=== PATIENT | female | born 1995 | race Caucasian/White ===

== ENCOUNTER 2018-10-02 19:14 | Emergency (ER) | payer BC ==
[2018-10-02 19:40] VITALS: BP 129/81; PULSE 103; TEMP 98.4; BMI 21.2
--- NOTE | 2018-10-02 19:43 | PDOC ---
Rapid Medical Evaluation Chief Complaint: Chest Pain Time Seen by Provider: 10/02/18 19:36 Medical Evaluation: 10/02/18 19:38 I have performed a brief in-person evaluation of this patient. The patient presents with a chief complaint of: Sent from for eval of CP / ro [place]. Chest pain all day, with upper left back pain. States stretched this am and may have hurt self. Denies fevers/ cough/ SOB. No0 cardiac hx . + Anxiety and thinks CP related but uncertain to back pain. Pertinent physical exam findings: pale, non toxic. Lungs CTA. I have ordered the following: eKG, ua/ ucg The patient will proceed to the ED for further evaluation. 10/02/18 19:40 Discharge Disposition - Diagnosis Chest pain - Referrals - Patient Instructions - Post Discharge Activity
--- NOTE | 2018-10-02 21:28 | PDOC ---
History of Present Illness - General Chief Complaint: Chest Pain Stated Complaint: SENT BY URGENT CARE/MD Time Seen by Provider: 10/02/18 19:36 History Source: Patient Exam Limitations: No Limitations - History of Present Illness Initial Comments: 10/02/18 21:52 Patient is a 23F with history of anxiety and depression, family history notable for blood clots in mother and grandmother, here today with chest pain that radiates to her back. Patient states that she was feeling short of breath and anxious today, typical of her normal issues with anxiety, but then became more worried when the pain developed. Denies fevers, chills, nausea, vomiting. LMP 22 days ago. Denies cough. Patient states that she does not have any pain right now. Stopped OCPs 3 days ago. Denies leg swelling, recent travel and immobilization. Past History - Past Medical History Allergies/Adverse Reactions: Allergies Allergy/AdvReac Type Severity Reaction Status Date / Time No Known Allergies Allergy Verified 10/02/18 20:45 COPD: No CHF: No - Suicide/Smoking/Psychosocial Hx Smoking History: Unknown if ever smoked Have you smoked in the past 12 months: No Information on smoking cessation initiated: No Hx Alcohol Use: No Drug/Substance Use Hx: No Review of Systems - Review of Systems Able to Perform ROS?: Yes Comments:: 10/02/18 21:55 GENERAL/CONSTITUTIONAL: No fever or chills. No weakness. HEAD, EYES, EARS, NOSE AND THROAT: No change in vision. No ear pain or discharge. No sore throat. CARDIOVASCULAR: +chest pain +shortness of breath RESPIRATORY: No cough, wheezing, or hemoptysis. GASTROINTESTINAL: No nausea, vomiting, diarrhea or constipation. GENITOURINARY: No dysuria, frequency, or change in urination. MUSCULOSKELETAL: No joint or muscle swelling or pain. No neck or back pain. SKIN: No rash NEUROLOGIC: No headache, vertigo, loss of consciousness, or change in strength/ sensation. ENDOCRINE: No increased thirst. No abnormal weight change HEMATOLOGIC/LYMPHATIC: No anemia, easy bleeding, or history of blood clots. ALLERGIC/IMMUNOLOGIC: No hives or skin allergy. *Physical Exam - Vital Signs Last Vital Signs Temp Pulse Resp BP Pulse Ox 98.4 F 103 H 16 129/81 100 10/02/18 19:37 10/02/18 19:37 10/02/18 19:37 10/02/18 19:37 10/02/18 19:37 - Physical Exam Comments: 10/02/18 21:55 GENERAL: Awake, alert, and fully oriented, in no acute distress HEAD: No signs of trauma, normocephalic, atraumatic EYES: PERRLA, EOMI, sclera anicteric, conjunctiva clear ENT: Auricles normal inspection, hearing grossly normal, nares patent, oropharynx clear without exudates. Moist mucosa NECK: Normal ROM, supple, no lymphadenopathy, JVD, or masses LUNGS: No distress, speaks full sentences, clear to auscultation bilaterally HEART: Regular rate and rhythm, normal S1 and S2, no murmurs, rubs or gallops, peripheral pulses normal and equal bilaterally. ABDOMEN: Soft, nontender, normoactive bowel sounds. No guarding, no rebound. No masses EXTREMITIES: Normal inspection, Normal range of motion, no edema. No clubbing or cyanosis. NEUROLOGICAL: Cranial nerves II through XII grossly intact. Normal speech, normal gait, no focal sensorimotor deficits SKIN: Warm, Dry, normal turgor, no rashes or lesions noted. ED Treatment Course - LABORATORY CBC & Chemistry Diagram: 10/02/18 22:48 10/02/18 22:48 - RADIOLOGY Radiology Studies Ordered: Category Date Time Status CHEST PA & LAT [RAD] Stat Radiology 10/02/18 21:22 Ordered Medical Decision Making - Medical Decision Making 10/02/18 21:57 Patient is 23F here today with chest pain and shortness of breath. DDx includes , but is not limited to: anxiety, pna, pe, acs is very low risk. Will do basic cardiac labs, d-dimer, ekg, cxr. Will re-evaluate and dispo. Currently not in pain. 10/02/18 23:27 EKG shows NSR with rate of 75. No st elevations/depressions. Rightward axis. RBBB pattern, normal intervals. T wave inversions in III and aVF. No prior available for comparison. D-dimer negative. CBC normal. CXR normal. Patient continues to be pain free. Pending trop. 10/03/18 00:53 Trop negative. CMP reassuring. CTA shows no pe/dissection. Does show likely inflammatory lung nodule. Patient given copy of report, told to follow up with cardiology and pcp. Given return precautions. *DC/Admit/Observation/Transfer Diagnosis at time of Disposition: Chest pain - Discharge Dispostion Disposition: HOME Condition at time of disposition: Good Decision to Admit order: No - Referrals Referrals: ON STAFF,NOT [Primary Care Provider] - - Patient Instructions Printed Discharge Instructions: DI for Chest Pain Additional Instructions: You were seen today in the ED for chest pain. No acute cause of your chest pain was found. Please follow up with the double end tenoner operator below regarding your EKG. Please follow up with your primary care doctor regarding the small nodule in your lung. Please return if you have any new, worsening or concerning symptoms, especially fevers, chills, nausea vomiting. - Post Discharge Activity
[2018-10-02 21:38] LABS: URINE APPEARANCE CLEAR; URINE BILIRUBIN NEGATIVE (NEGATIVE); URINE COLOR YELLOW; URINE GLUCOSE (UA) NEGATIVE (NEGATIVE); URINE KETONE NEGATIVE (NEGATIVE); URINE LEUK ESTERASE NEGATIVE (NEGATIVE); URINE NITRITE NEGATIVE (NEGATIVE); URINE PROTEIN NEGATIVE (NEGATIVE); URINE UROBILINOGEN 0.2 mg/dL (0.2-1.0)
[2018-10-02 22:57] LABS: BASO % 1.3 % (0-2.0); EOS % 2.4 % (0-4.5); HEMATOCRIT 38.2 % (32.4-45.2); HEMOGLOBIN 12.9 GM/dL (10.7-15.3); LYMPH % 41.9 % (8-40); MCH 31.3 pg (25.7-33.7); MCHC 33.9 g/dl (32.0-36.0); MEAN CELL VOLUME 92.6 fl (80-96); MEAN PLT VOLUME 9.3 fl (7.5-11.1); MONO % 6.7 % (3.8-10.2); NEUT % 47.7 % (42.8-82.8); PLATELET COUNT 301 K/MM3 (134-434); RBC 4.12 M/mm3 (3.60-5.2); RDW 13.2 % (11.6-15.6); WHITE BLOOD COUNT 6.6 K/mm3 (4.0-10.0)
[2018-10-02 23:11] LABS: INR 0.97 (0.83-1.09); PROTHROMBIN TIME (PATIENT) 11.5 SEC (9.7-13.0)
[2018-10-02 23:30] LABS: BILIRUBIN,TOTAL 0.4 mg/dL (0.2-1); BLOOD UREA NITROGEN 6.2 mg/dL (7-18); CALCIUM 9.5 mg/dL (8.5-10.1); CREATININE 0.6 mg/dL (0.55-1.3); MAGNESIUM 2.3 mg/dL (1.8-2.4); POTASSIUM 4.1 mmol/L (3.5-5.1); TOT PROT 7.3 g/dl (6.4-8.2)
--- NOTE | 2018-10-03 00:49 | PDOC ---
Documentation entered by Marjorie Riddle SCRIBE, acting as scribe for Alycia Hunt DO. Alycia Hunt DO: This documentation has been prepared by the Janessa griffin Brenda, SCRIBE, under my direction and personally reviewed by me in its entirety. I confirm that the documentation accurately reflects all work , treatment, procedures, and medical decision making performed by me. Attending Attestation - Resident Resident Name: Toby Shankar - ED Attending Attestation I have performed the following: I have examined & evaluated the patient, The case was reviewed & discussed with the resident, I agree w/resident's findings & plan, Exceptions are as noted - HPI HPI: 10/02/18 23:54 The patient is a 23 year old female, with a significant PMH of anxiety who presents to the emergency department sent from Urgent Care for evaluation of 1 day of chest pain to rule out MT and an elevated D-Dimer. As per patient, the chest pain is left sided and radiates to her back. The patient denies shortness of breath, headache and dizziness. Denies any GI symptoms. Denies any urinary symptoms. Allergies: NKA, NKDA. Family History: Blood clots - Mother and maternal grandmother PCP: Not on staff - Physicial Exam PE: 10/02/18 22:02 Agree with resident's exam. - Medical Decision Making 10/03/18 00:46 23-year-old female with intermittent central chest pressure now with radiation to the back Patient has family history of abnormal clotting with multiple DVTs in both her mother and grandmother EKG and arrival shows a sinus rhythm at 75 beats per minutes with U waves in lateral leads, there are T wave inversions and flattening in inferior leads as well D-dimer is within normal limits in light of family history, recent oral contraceptive use and tachycardia on arrival a CTA of the chest will be performed Troponin within normal limits Pending CTA results patient will be discharged home with outpatient cardiology follow-up
--- NOTE | 2018-10-03 13:33 | EKG ---
Test Reason : Blood Pressure : / mmHG Vent. Rate : 075 BPM Atrial Rate : 075 BPM P-R Int : 134 ms QRS Dur : 100 ms QT Int : 394 ms P-R-T Axes : 066 098 -16 degrees QTc Int : 439 ms NORMAL SINUS RHYTHM POSSIBLE LEFT ATRIAL ENLARGEMENT RIGHTWARD AXIS INCOMPLETE RIGHT BUNDLE BRANCH BLOCK T WAVE ABNORMALITY, CONSIDER INFERIOR ISCHEMIA ABNORMAL ECG NO PREVIOUS ECGS AVAILABLE Confirmed by DEION LEE MD ([id number]) on 10/03/2018 1:33:37 PM Referred By: Confirmed By:DEION LEE MD
== END 2018-10-03 01:00 | disposition home or self-care (01) ==
LOC: JER 19:14
DX: R07.9 Chest pain, unspecified (principal); F41.9 Anxiety disorder, unspecified; F32.9 Major depressive disorder, single episode, unspecified
CPT/HCPCS: 36415; 71046-TC-FY; 71275-TC; 80053; 81003; 82550; 83735; 84484; 84703; 85025; 85379; 85610; 93005; 93010; 99283-25